=== PATIENT | female | born 1985 | race Caucasian/White ===

== ENCOUNTER 2018-05-02 10:32 | Emergency (ER) | payer OTHER ==
[2018-05-02] MEDS ORDERED: Diphtheria,Pertussis(Acell),Tetanus Vaccine 0.5 ML Syringe IM ONE (10:44)
[2018-05-02] MEDS ORDERED: Octyl 2-Cyanoacrylate 1 Tube TOP ONE (10:44)
--- NOTE | 2018-05-02 10:49 | EDM.PDOC ---
ED HPI GENERAL MEDICAL PROBLEM - General Chief Complaint: Laceration Stated Complaint: UNK Time Seen by Provider: 05/02/18 10:45 Source of Information: Reports: Patient History Limitations: Reports: No Limitations - History of Present Illness INITIAL COMMENTS - FREE TEXT/NARRATIVE: HISTORY AND PHYSICAL: History of present illness: Patient is a 32-year-old female who presents to the emergency room today with complaint of laceration across the bridge of her nose post seizure. She states this morning she was performing her normal routine when she "felt funny" and woke up on the ground. She has a known seizure disorder, having 2 previous - both were several years apart. Patient states she woke up on the ground and felt very fatigued and tired. Does have a 0.5 cm laceration across the bridge of her nose. She denies any pain or to her extremities, trunk, neck or back. Review of systems: As per history of present illness and below otherwise all systems reviewed and negative. Past medical history: As per history of present illness and as reviewed below otherwise noncontributory. Surgical history: As per history of present illness and as reviewed below otherwise noncontributory. Social history: No reported history of drug or alcohol abuse. Family history: As per history of present illness and as reviewed below otherwise noncontributory. Physical exam: General: Well-developed and well-nourished 32-year-old female. Alert and oriented. Nontoxic appearing and in no acute distress. HEENT: 0.5cm laceration to bridge of nose, nontender to palpation, normocephalic , pupils equal and reactive bilaterally, negative for conjunctival pallor or scleral icterus, mucous membranes moist, throat clear, neck supple, nontender, trachea midline. No drooling or trismus noted. No meningeal signs Lungs: Clear to auscultation, breath sounds equal bilaterally, chest nontender. Heart: S1S2, regular rate and rhythm without overt murmur Abdomen: Soft, nondistended, nontender. Negative for masses or hepatosplenomegaly. Negative for costovertebral tenderness. Pelvis: Stable nontender. Genitourinary: Deferred. Rectal: Deferred. Skin: 0.5cm laceation to bridge of nose. Otherwise skin is intact, warm, dry. No lesions or rashes noted. Extremities: Moves all extremities per self without difficulty or deficits, negative for cords or calf pain. Neurovascular unremarkable. C-spine/Back: No pinpoint vertebral tenderness upon palpation. No crepitus, step -offs or obvious deformities. She is ambulatory into the emergency room with even and steady gait. Able to walk on her heels and toes without difficulty. She had no urinary or fecal incontinence. Denies any numbness or tingling to her distal extremities. Neuro: Awake, alert, oriented. Cranial nerves II through XII unremarkable. Cerebellum unremarkable. Motor and sensory unremarkable throughout. Exam nonfocal. Notes: Doing a head CT at this time. She would like one completed as she is currently going through IVF for fertility. She states "I will make sure to have a brain tumor". We will performing the CT, declines any lab work at this time. Negative head CT. Wound care completed. Dermabond glue was used to close the laceration to the bridge of the nose. Patient tolerated well. Supportive care measures reviewed and discussed. She voices understanding and is agreeable to plan of care. Denies any further questions or concerns at this time. Diagnostics: CT Head Therapeutics: Tdap, Dermabond, Wound Care Prescription: None Impression: Head Injury Laceration Plan: 1. Take the remainder of the to rest (limit screen time, strenuous activities, etc...) 2. Tylenol and/or ibuprofen as needed for pain management. 3. Please do not remove the glue adhesive, this will fall off on its own. Continue to monitor for signs of infection. Once the glue has fallen off please apply sunscreen when out in sun exposure to minimize scarring 4. Please review the head injury instructions that we have discussed and that her printed in your discharge packet. 5. Follow-up with your primary caregiver in the next 1-2 days. Return to the ED as needed and as discussed. Definitive disposition and diagnosis as appropriate pending reevaluation and review of above. Onset: Today - Related Data Allergies Allergy/AdvReac Type Severity Reaction Status Date / Time No Known Allergies Allergy Verified 05/02/18 11:00 Home Meds: Home Meds Control 1 tab PO ASDIRECTED 05/02/18 [History] Folic Acid 1 mg PO DAILY 05/02/18 [History] Vit #108/Iron/FA [ One Tablet] 1 tab PO DAILY 05/02/18 [History ] lamoTRIgine [Lamictal] 150 mg PO BID 05/02/18 [History] metFORMIN [Glucophage] 1,000 mg PO DAILY 05/02/18 [History] ED ROS GENERAL - Review of Systems Review Of Systems: ROS reveals no pertinent complaints other than HPI. ED EXAM, SKIN/RASH Exam: See Below (See dictation) Course - Vital Signs Last Recorded V/S: Last Vital Signs Temp 97.8 F 05/02/18 10:57 Pulse 82 05/02/18 10:57 Resp 16 05/02/18 10:57 BP 124/78 05/02/18 10:57 Pulse Ox 100 05/02/18 10:57 - Orders/Labs/Meds Orders: Active Orders 24 hr Category Date Time Status Vaccines to be Administered [RC] PER UNIT ROUTINE Care 05/02/18 10:44 Active Head wo Cont [CT] Stat Exams 05/02/18 10:44 Taken Meds: Medications Discontinued Medications Generic Name Dose Route Start Last Admin Trade Name Freq PRN Reason Stop Dose Admin Diphtheria/Tetanus/Acell Pertussis 0.5 ml 05/02/18 10:44 05/02/18 11:29 Adacel IM 05/02/18 10:45 0.5 ml .ONCE ONE Administration Octyl Cyanoacrylate 1 applic 05/02/18 10:44 05/02/18 11:37 Dermabond Advance TOP 05/02/18 10:45 1 applic ONETIME ONE Administration Departure - Departure Time of Disposition: 11:46 Disposition: Home, Self-Care 01 Clinical Impression: Laceration Head injury Qualifiers: Encounter type: initial encounter Qualified Code(s): S09.90XA - Unspecified injury of head, initial encounter - Discharge Information Instructions: Head Injury, Adult, [id number], Laceration Care, Adult, Easy-to -Read Referrals: PCP,None [Primary Care Provider] - Forms: ED Department Discharge Additional Instructions: The following information is given to patients seen in the emergency department who are being discharged to home. This information is to outline your options for follow-up care. We provide all patients seen in our emergency department with a follow-up referral. The need for follow-up, as well as the timing and circumstances, are variable depending upon the specifics of your emergency department visit. If you don't have a primary care physician on staff, we will provide you with a referral. We always advise you to contact your personal physician following an emergency department visit to inform them of the circumstance of the visit and for follow-up with them and/or the need for any referrals to a consulting specialist. The emergency department will also refer you to a specialist when appropriate. This referral assures that you have the opportunity for follow-up care with a specialist. All of these measure are taken in an effort to provide you with optimal care, which includes your follow-up. Under all circumstances we always encourage you to contact your private physician who remains a resource for coordinating your care. When calling for follow-up care, please make the office aware that this follow-up is from your recent emergency room visit. If for any reason you are refused follow-up, please contact the [facility] Emergency Department at and asked to speak to the emergency department charge nurse. [facility] [address] [place] [id number] 1. Take the remainder of the to rest (limit screen time, strenuous activities, etc...) 2. Tylenol and/or ibuprofen as needed for pain management. 3. Please do not remove the glue adhesive, this will fall off on its own. Continue to monitor for signs of infection. Once the glue has fallen off please apply sunscreen when out in sun exposure to minimize scarring 4. Please review the head injury instructions that we have discussed and that her printed in your discharge packet. 5. Follow-up with your primary caregiver in the next 1-2 days. Return to the ED as needed and as discussed. - My Orders Last 24 Hours: My Active Orders 05/02/18 10:44 Vaccines to be Administered [RC] PER UNIT ROUTINE Head wo Cont [CT] Stat - Assessment/Plan Last 24 Hours: My Active Orders 05/02/18 10:44 Vaccines to be Administered [RC] PER UNIT ROUTINE Head wo Cont [CT] Stat
--- NOTE | 2018-05-02 17:42 | CT ---
EXAM DATE: 05/02/18 PATIENT'S AGE: 32 Patient: REJI PINEDA Facility: [place], [place] Site . Site : 1985 Study: CT Head WO CONT [id number]/20/2018 11:19:30 AM Ordering Physician: Doctor Guzman Final Report: INDICATION: 32-year-old female. Syncope versus seizure. TECHNIQUE: Contiguous CT images are obtained from foramen magnum to vertex without contrast axial sagittal and coronal reformatted images are reviewed. FINDINGS: The lateral 3rd and 4th ventricles normal in size and shape. The head is tilted slightly to the right accounting for the [id number] asymmetry. No evidence of acute intracranial hemorrhage or mass effect. No evidence of focal edema. No areas of abnormal brain density. The bony calvarium is unremarkable. Some localized on soft-tissue swelling over the bridge of the nose. IMPRESSION: Normal CT brain. No evidence of acute intracranial hemorrhage or skull fracture. Please note that all CT scans at this facility use dose modulation, iterative reconstruction, and/or weight-based dosing when appropriate to reduce radiation dose to as low as reasonably achievable. Dictated by Minor Sherman MD @ May 02 2018 11:41AM (Electronic Signature) Report Signed by Proxy. ALLYSON
== END 2018-05-02 12:05 | disposition home or self-care (01) ==
LOC: MW.ED 10:32
DX: S09.90XA Unspecified injury of head, initial encounter (principal); S01.21XA Laceration without foreign body of nose, initial encounter; X58.XXXA Exposure to other specified factors, initial encounter
CPT/HCPCS: 70450; 90471; 90715; 99284; A9270

== ENCOUNTER 2018-06-04 11:42 | Emergency (ER) | payer SELFPAY ==
--- NOTE | 2018-06-04 11:50 | EDM.PDOC ---
ED HPI GENERAL MEDICAL PROBLEM - General Chief Complaint: Neuro Symptoms/Deficits Stated Complaint: SEIZURE Time Seen by Provider: 06/04/18 11:50 Source of Information: Reports: Patient History Limitations: Reports: No Limitations - History of Present Illness INITIAL COMMENTS - FREE TEXT/NARRATIVE: HISTORY AND PHYSICAL: History of present illness: 32-year-old female presenting to the emergency room after unwitnessed seizure activity with past medical history of seizure disorder. Patient states that around 7 AM this morning she was sitting in her bed when she felt a "seizure coming on". She then next remembers looking at the clock and it was around 7:30. She denies any muscle pain or other injuries. States that she did have a seizure approximately one month ago as well in which she fell from standing position causing a laceration. She does have a history of seizure disorder but has been on Keppra 150 mg twice a day for some time with no problems. However, recently she has started in vitro fertilization therapy and is currently taking metformin, estradiol patches 0.1 mg 2 daily as well as estradiol pills 16 mg by mouth daily. States that they did have a transfer fertilized egg last week. She does see Dr. Althea Bateman in [place] as her fertility doctor. She does have an appointment to see Dr. Kerr on July 22 as her former neurologist was Dr. Mcclelland and she has not seen him for some time. Patient does state that she did have a CT of her head one month ago that was unremarkable. Otherwise she has been feeling her normal usual self. Of note, we did call Dr. Bateman, her in vitro fertilization physician who did verify that her current therapy could be lowering her seizure threshold and that she did agree with my increasing her Keppra dosage for now. In addition we did place her on to be seen as soon as possible by Dr. Kerr , neurologist. She does have an appointment July 22 but something sooner would be much appreciated secondary to her current in Vitro fertilization therapy and new seizure activity. CBC, CMP, mag, UA were all unremarkable. Review of systems: As per history of present illness and below otherwise all systems reviewed and negative. Past medical history: As per history of present illness and as reviewed below otherwise noncontributory. Surgical history: As per history of present illness and as reviewed below otherwise noncontributory. Social history: No reported history of drug or alcohol abuse. Family history: As per history of present illness and as reviewed below otherwise noncontributory. Physical exam: HEENT: Atraumatic, normocephalic, pupils reactive, negative for conjunctival pallor or scleral icterus, mucous membranes moist, throat clear, neck supple, nontender, trachea midline. Lungs: Clear to auscultation, breath sounds equal bilaterally, chest nontender. Heart: S1S2, regular, negative for clicks, rubs, or JVD. Abdomen: Soft, nondistended, nontender. Negative for masses or hepatosplenomegaly. Negative for costovertebral tenderness. Pelvis: Stable nontender. Genitourinary: Deferred. Rectal: Deferred. Extremities: Atraumatic, negative for cords or calf pain. Neurovascular unremarkable. Neuro: Awake, alert, oriented. Cranial nerves II through XII unremarkable. Cerebellum unremarkable. Motor and sensory unremarkable throughout. Exam nonfocal. Diagnostics: CBC, CMP, mag, UA, urine tox Therapeutics: [] Impression: Tonic-clonic seizure disorder New seizure activity secondary to medication interaction Plan: Please see above H&P. I did initially suspect that her new medications for IVF treatment has been affecting her current Keppra levels. We did talk to her IVF physician who agreed and I did go ahead and write a prescription for 500 mg of Keppra by mouth twice a day for 30 days. She currently on a very low dose at 150 mg by mouth twice a day. In addition she is to follow-up with her IVF physician as well as follow-up with Dr. Kerr. We will try to get her sooner appointment than her scheduled July 22. She was instructed to return to emergency department if she had any new or worsening symptoms. Definitive disposition and diagnosis as appropriate pending reevaluation and review of above. - Related Data Allergies Allergy/AdvReac Type Severity Reaction Status Date / Time No Known Allergies Allergy Verified 06/04/18 11:55 Home Meds: Home Meds Folic Acid 1 mg PO DAILY 05/02/18 [History] Vit #108/Iron/FA [ One Tablet] 1 tab PO DAILY 05/02/18 [History ] lamoTRIgine [Lamictal] 150 mg PO BID 05/02/18 [History] metFORMIN [Glucophage] 500 mg PO BID 05/02/18 [History] Estradiol [Climara] 2 each TD DAILY 06/04/18 [History] Estradiol [Estrace] 4 mg PO BID 06/04/18 [History] proGESTerone [Progesterone In Oil] 50 mg IM DAILY 06/04/18 [History] Past Medical History - Infectious Disease History Infectious Disease History: Reports: Chicken Pox - Past Surgical History Female Surgical History: Reports: Other (See Below) Other Female Surgeries/Procedures: currently trying to get through IVF Social & Family History - Family History Family Medical History: Noncontributory - Caffeine Use Caffeine Use: Reports: Coffee ED ROS GENERAL - Review of Systems Review Of Systems: ROS reveals no pertinent complaints other than HPI. ED EXAM, GENERAL - Physical Exam Exam: See Below Course - Vital Signs Last Recorded V/S: Last Vital Signs Temp 98.3 F 06/04/18 12:08 Pulse 86 06/04/18 12:08 Resp 18 06/04/18 12:08 BP 122/64 06/04/18 12:08 Pulse Ox 98 06/04/18 12:08 - Orders/Labs/Meds Orders: Active Orders 24 hr Category Date Time Status CULTURE URINE [RM] Stat Lab 06/04/18 13:00 Received Labs: Laboratory Tests 06/04/18 06/04/18 06/04/18 Range/Units 12:47 12:47 13:00 WBC 6.71 (4.0-11.0) K/uL RBC 4.34 (4.30-5.90) M/uL Hgb 13.4 (12.0-16.0) g/dL Hct 39.0 (36.0-46.0) % MCV 89.9 (80.0-98.0) fL MCH 30.9 (27.0-32.0) pg MCHC 34.4 (31.0-37.0) g/dL RDW Std Deviation 40.7 (28.0-62.0) fl RDW Coeff of Tosha 12 (11.0-15.0) % Plt Count 286 (150-400) K/uL MPV 10.50 (7.40-12.00) fL Neut % (Auto) 85.5 H (48.0-80.0) % Lymph % (Auto) 11.0 L (16.0-40.0) % Cannon % (Auto) 3.3 (0.0-15.0) % Eos % (Auto) 0.1 (0.0-7.0) % Baso % (Auto) 0.1 (0.0-1.5) % Neut # (Auto) 5.7 (1.4-5.7) K/uL Lymph # (Auto) 0.7 (0.6-2.4) K/uL Cannon # (Auto) 0.2 (0.0-0.8) K/uL Eos # (Auto) 0.0 (0.0-0.7) K/uL Baso # (Auto) 0.0 (0.0-0.1) K/uL Nucleated RBC % 0.0 /100WBC Nucleated RBCs # 0 K/uL Sodium 138 (136-145) mmol/L Potassium 4.5 (3.5-5.1) mmol/L Chloride 105 (98-107) mmol/L Carbon Dioxide 25.2 (21.0-32.0) mmol/L BUN 10 (7.0-18.0) mg/dL Creatinine 0.9 (0.6-1.0) mg/dL Est Cr Clr Drug Dosing TNP Estimated GFR (MDRD) > 60.0 ml/min Glucose 91 (74-106) mg/dL Calcium 9.7 (8.5-10.1) mg/dL Magnesium 1.8 (1.8-2.4) mg/dL Total Bilirubin 0.3 (0.2-1.0) mg/dL AST 17 (15-37) IU/L ALT 20 (14-63) IU/L Alkaline Phosphatase 49 (46-116) U/L Total Protein 7.2 (6.4-8.2) g/dL Albumin 3.9 (3.4-5.0) g/dL Globulin 3.3 (2.0-3.5) g/dL Albumin/Globulin Ratio 1.2 L (1.3-2.8) Urine Color YELLOW Urine Appearance CLEAR Urine pH 6.0 (5.0-8.0) Ur Specific Catlin 1.020 (1.001-1.035) Urine Protein NEGATIVE (NEGATIVE) mg/dL Urine Glucose (UA) NEGATIVE (NEGATIVE) mg/dL Urine Ketones NEGATIVE (NEGATIVE) mg/dL Urine Occult Blood NEGATIVE (NEGATIVE) Urine Nitrite NEGATIVE (NEGATIVE) Urine Bilirubin NEGATIVE (NEGATIVE) Urine Urobilinogen 0.2 (<2.0) EU/dL Ur Leukocyte Esterase NEGATIVE (NEGATIVE) Urine RBC 0-1 (0-2/HPF) Urine WBC 0-1 (0-5/HPF) Ur Epithelial Cells OCCASIONAL (NONE-FEW) Urine Bacteria RARE (NEGATIVE) Urine Opiates Screen (NEGATIVE) Ur Oxycodone Screen (NEGATIVE) Urine Methadone Screen (NEGATIVE) Ur Barbiturates Screen (NEGATIVE) Ur Phencyclidine Scrn (NEGATIVE) Ur Amphetamine Screen (NEGATIVE) U Methamphetamines Scrn (NEGATIVE) U Benzodiazepines Scrn (NEGATIVE) U Cocaine Metab Screen (NEGATIVE) U Marijuana (THC) Screen (NEGATIVE) 06/04/18 Range/Units 13:00 WBC (4.0-11.0) K/uL RBC (4.30-5.90) M/uL Hgb (12.0-16.0) g/dL Hct (36.0-46.0) % MCV (80.0-98.0) fL MCH (27.0-32.0) pg MCHC (31.0-37.0) g/dL RDW Std Deviation (28.0-62.0) fl RDW Coeff of Tosha (11.0-15.0) % Plt Count (150-400) K/uL MPV (7.40-12.00) fL Neut % (Auto) (48.0-80.0) % Lymph % (Auto) (16.0-40.0) % Cannon % (Auto) (0.0-15.0) % Eos % (Auto) (0.0-7.0) % Baso % (Auto) (0.0-1.5) % Neut # (Auto) (1.4-5.7) K/uL Lymph # (Auto) (0.6-2.4) K/uL Cannon # (Auto) (0.0-0.8) K/uL Eos # (Auto) (0.0-0.7) K/uL Baso # (Auto) (0.0-0.1) K/uL Nucleated RBC % /100WBC Nucleated RBCs # K/uL Sodium (136-145) mmol/L Potassium (3.5-5.1) mmol/L Chloride (98-107) mmol/L Carbon Dioxide (21.0-32.0) mmol/L BUN (7.0-18.0) mg/dL Creatinine (0.6-1.0) mg/dL Est Cr Clr Drug Dosing Estimated GFR (MDRD) ml/min Glucose (74-106) mg/dL Calcium (8.5-10.1) mg/dL Magnesium (1.8-2.4) mg/dL Total Bilirubin (0.2-1.0) mg/dL AST (15-37) IU/L ALT (14-63) IU/L Alkaline Phosphatase (46-116) U/L Total Protein (6.4-8.2) g/dL Albumin (3.4-5.0) g/dL Globulin (2.0-3.5) g/dL Albumin/Globulin Ratio (1.3-2.8) Urine Color Urine Appearance Urine pH (5.0-8.0) Ur Specific Catlin (1.001-1.035) Urine Protein (NEGATIVE) mg/dL Urine Glucose (UA) (NEGATIVE) mg/dL Urine Ketones (NEGATIVE) mg/dL Urine Occult Blood (NEGATIVE) Urine Nitrite (NEGATIVE) Urine Bilirubin (NEGATIVE) Urine Urobilinogen (<2.0) EU/dL Ur Leukocyte Esterase (NEGATIVE) Urine RBC (0-2/HPF) Urine WBC (0-5/HPF) Ur Epithelial Cells (NONE-FEW) Urine Bacteria (NEGATIVE) Urine Opiates Screen NEGATIVE (NEGATIVE) Ur Oxycodone Screen NEGATIVE (NEGATIVE) Urine Methadone Screen NEGATIVE (NEGATIVE) Ur Barbiturates Screen NEGATIVE (NEGATIVE) Ur Phencyclidine Scrn NEGATIVE (NEGATIVE) Ur Amphetamine Screen NEGATIVE (NEGATIVE) U Methamphetamines Scrn NEGATIVE (NEGATIVE) U Benzodiazepines Scrn POSITIVE (NEGATIVE) U Cocaine Metab Screen NEGATIVE (NEGATIVE) U Marijuana (THC) Screen NEGATIVE (NEGATIVE) Departure - Departure Time of Disposition: 13:57 Disposition: Home, Self-Care 01 Condition: Good Clinical Impression: Seizure, Tonic-clonic seizure disorder, Drug interaction - Discharge Information Referrals: PCP,None [Primary Care Provider] - Forms: ED Department Discharge Additional Instructions: My general discharge The following information is given to patients seen in the emergency department who are being discharged to home. This information is to outline your options for follow-up care. We provide all patients seen in our emergency department with a follow-up referral. The need for follow-up, as well as the timing and circumstances, are variable depending upon the specifics of your emergency department visit. If you don't have a primary care physician on staff, we will provide you with a referral. We always advise you to contact your personal physician following an emergency department visit to inform them of the circumstance of the visit and for follow-up with them and/or the need for any referrals to a consulting specialist. The emergency department will also refer you to a specialist when appropriate. This referral assures that you have the opportunity for follow-up care with a specialist. All of these measure are taken in an effort to provide you with optimal care, which includes your follow-up. Under all circumstances we always encourage you to contact your private physician who remains a resource for coordinating your care. When calling for follow-up care, please make the office aware that this follow-up is from your recent emergency room visit. If for any reason you are refused follow-up, please contact the [facility] Emergency Department at and asked to speak to the emergency department charge nurse. [facility] - Neurology Professional Building [address] [place] [address], [address] [place] [address] [facility] [address] [place] [id number] As we discussed please follow-up with your IVF physician as well as Dr. Kerr, neurology. Be sure to call them on Wednesday and tell them they were seen in the emergency department and they wish for you to be seen as soon as possible. We did notify their office. Take medication as prescribed and as we discussed. Return to emergency department if any new or worsening symptoms. - My Orders Last 24 Hours: My Active Orders 06/04/18 13:00 CULTURE URINE [RM] Stat - Assessment/Plan Last 24 Hours: My Active Orders 06/04/18 13:00 CULTURE URINE [RM] Stat
[2018-06-04 13:20] LABS: CHLORIDE,CL 105 mmol/L (98-107); SODIUM,NA 138 mmol/L (136-145)
== END 2018-06-04 14:25 | disposition home or self-care (01) ==
LOC: MW.ED 11:42
DX: G40.409 Other generalized epilepsy and epileptic syndromes, not intractable, without status epilepticus (principal); T38.5X5A Adverse effect of other estrogens and progestogens, initial encounter; T38.3X5A Adverse effect of insulin and oral hypoglycemic [antidiabetic] drugs, initial encounter; Z79.899 Other long term (current) drug therapy
CPT/HCPCS: 36415; 80053; 80305-QW; 81001; 83735; 85025; 87086; 99283; 99284

== ENCOUNTER 2019-02-06 00:23 | Inpatient (IN) | payer BC ==
[2019-02-06] MEDS ORDERED: Terbutaline 1 MG/ML SDV SUBCUT PRN (00:28)
[2019-02-06] MEDS ORDERED: Carboprost Tromethamine 250 MCG/1 ML Amp IM PRN (00:30)
[2019-02-06] MEDS ORDERED: Water For Irrigation,Sterile 1,000 ML Container IRR PRN (00:30)
[2019-02-06] MEDS ORDERED: Sodium Chloride 0.9% 2.5 ML Syringe FLUSH PRN (00:30)
[2019-02-06] MEDS ORDERED: Nalbuphine 10 MG/1 ML Vial IVPUSH PRN (00:30)
[2019-02-06] MEDS ORDERED: Ampicillin 2 GM in Sodium Chloride 0.9% 100 ML IV ONE (00:30)
[2019-02-06] MEDS ORDERED: Butorphanol 1 MG/ML SDV IVPUSH PRN (00:30)
[2019-02-06] MEDS ORDERED: Sodium Chloride 0.9% 10 ML SDV IV PRN (00:30)
[2019-02-06] MEDS ORDERED: Sodium Chloride 0.9% 10 ML Syringe FLUSH PRN (00:30)
[2019-02-06] MEDS ORDERED: Oxytocin/0.9 % Sodium Chloride 30 UNIT/500 ML BAG IV SCH ×2 (00:30)
[2019-02-06] MEDS ORDERED: Lidocaine 1% 50 ML MDV INJECT PRN (00:30)
[2019-02-06] MEDS ORDERED: Methylergonovine 0.2 MG/1 ML Amp IM PRN (00:30)
[2019-02-06] MEDS ORDERED: Misoprostol 200 MCG Tab PO PRN (00:30)
[2019-02-06] MEDS ORDERED: Tranexamic Acid 1,000 MG in Sodium Chloride 0.9% 100 ML IV PRN (00:30)
[2019-02-06] MEDS ORDERED: Ampicillin 1 GM in Sodium Chloride 0.9% 50 ML IV SCH (00:30)
[2019-02-06] MEDS: Lactated Ringers 1,000 ML IV SCH ×3 (01:19→23:57)
[2019-02-06] MEDS: Misoprostol 25 MCG (1/4 of 100 MCG) Tab VAG PRN ×5 (01:32→18:35)
[2019-02-06] MEDS: Ampicillin 1 GM in Sodium Chloride 0.9% 50 ML IV SCH ×5 (05:25→21:20)
--- NOTE | 2019-02-06 09:39 | PCM.LDHP ---
L&D History of Present Illness - General Date of Service: 02/06/19 Admit Problem/Dx: Patient Status Order with Admit Dx/Problem 02/06/19 00:30 Patient Status [ADT] Routine Admission Diagnosis/Problem Admission Diagnosis/Problem Source of Information: Patient History Limitations: Reports: No Limitations - History of Present Illness Improves with: Reports: None Worsens with: Reports: None Associated Symptoms: Reports: N - Related Data Allergies/Adverse Reactions: Allergies Allergy/AdvReac Type Severity Reaction Status Date / Time No Known Allergies Allergy Verified 06/04/18 11:55 Home Medications: Home Meds Folic Acid 1 mg PO DAILY 05/02/18 [History] Mv-Mn/Iron/FA/Herbal/Digestive [ One Tablet] 1 tab PO DAILY 05/02/18 [ History] lamoTRIgine [Lamictal] 150 mg PO BID 05/02/18 [History] Past Medical History - Past Health History Medical/Surgical History: Denies Medical/Surgical History HEENT History: Reports: None Cardiovascular History: Reports: None Respiratory History: Reports: None Gastrointestinal History: Reports: None Genitourinary History: Reports: None 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: Other (See Below) Other OB/BYN History: 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 Musculoskeletal History: Reports: None Neurological History: Reports: Seizure Psychiatric History: Reports: None Hematologic History: Reports: None Immunologic History: Reports: None Oncologic (Cancer) History: Reports: None Dermatologic History: Reports: None - Infectious Disease History Infectious Disease History: Reports: Chicken Pox - Past Surgical History Head Surgeries/Procedures: Reports: None Female Surgical History: Reports: Other (See Below) Other Female Surgeries/Procedures: currently trying to get through IVF Social & Family History - Family History Family Medical History: Noncontributory - Tobacco Use Smoking Status *Q: Never Smoker Second Hand Smoke Exposure: No - Caffeine Use Caffeine Use: Reports: Coffee - Recreational Drug Use Recreational Drug Use: No H&P Review of Systems - Review of Systems: Review Of Systems: See Below General: Reports: No Symptoms HEENT: Reports: No Symptoms Pulmonary: Reports: No Symptoms Cardiovascular: Reports: No Symptoms Gastrointestinal: Reports: No Symptoms Genitourinary: Reports: No Symptoms Musculoskeletal: Reports: No Symptoms Skin: Reports: No Symptoms Psychiatric: Reports: No Symptoms Neurological: Reports: No Symptoms Hematologic/Lymphatic: Reports: No Symptoms Immunologic: Reports: No Symptoms L&D Exam - Exam Exam: See Below - Vital Signs Weight: 71.668 kg - OB Specific Contraction Intensity: Mild to Moderate Movement: Active Heart Tones: Present Presentation: Vertex - Farrar Score Farrar Score Cervix Position: Midposition Farrar Score Consistency: Soft Farrar Score Effacement: >80% Farrar Score Dilation: 1-2 cm Farrar Score Infant's Station: -2 Farrar Score Total: 8 - Exam General: Alert, Oriented HEENT: PERRLA, Conjunctiva Clear, EACs Clear, EOMI, Hearing Intact, Mucosa Moist & [place], Nares Patent, Normal Nasal Septum, Posterior Pharynx Clear, TMs Clear Neck: Supple, Trachea Midline Lungs: Clear to Auscultation, Normal Respiratory Effort Cardiovascular: Regular Rate, Regular Rhythm GI/Abdominal Exam: Normal Bowel Sounds, Soft, Non-Tender, No Organomegaly, No Distention, No Abnormal Bruit, No Mass, Pelvis Stable Rectal Exam: Normal Exam, Normal Rectal Tone Genitourinary: Normal external exam, Normal bimanual exam, Normal speculum exam Back Exam: Normal Inspection, Full Range of Motion Extremities: Normal Inspection, Normal Range of Motion, Non-Tender, No Pedal Edema, Normal Capillary Refill Skin: Warm, Dry, Intact Neurological: Cranial Nerves Intact, Reflexes Equal Bilateral Psychiatric: Alert, Normal Affect, Normal Mood - Patient Data Lab Results Last 24 hrs: Laboratory Results - last 24 hr 02/06/19 02/06/19 Range/Units 00:50 00:50 WBC 8.98 (4.0-11.0) K/uL RBC 3.17 L (4.30-5.90) M/uL Hgb 10.7 L (12.0-16.0) g/dL Hct 31.6 L (36.0-46.0) % MCV 99.7 H (80.0-98.0) fL MCH 33.8 H (27.0-32.0) pg MCHC 33.9 (31.0-37.0) g/dL RDW Std Deviation 46.5 (28.0-62.0) fl RDW Coeff of Tosha 13 (11.0-15.0) % Plt Count 211 (150-400) K/uL MPV 11.90 (7.40-12.00) fL Blood Type AB POSITIVE Antibody Screen NEGATIVE Result Diagrams: 02/06/19 00:50 Problem List Initiated/Reviewed/Updated: Yes Orders Last 24hrs: Active Orders 24 hr Category Date Time Status Patient Status [ADT] Routine ADT 02/06/19 00:30 Active Bedrest Bathroom Privileges [RC] ASDIRECTED Care 02/06/19 00:29 Active Communication Order [RC] ASDIRECTED Care 02/06/19 00:29 Active Communication Order [RC] ASDIRECTED Care 02/06/19 00:29 Active Communication Order [RC] ASDIRECTED Care 02/06/19 00:29 Active Heart Tones [RC] CONTINUOUS Care 02/06/19 00:30 Active Non Stress Test [RC] PER UNIT ROUTINE Care 02/06/19 00:30 Active May Shower [RC] ASDIRECTED Care 02/06/19 00:30 Active Notify Provider [RC] PRN Care 02/06/19 00:29 Active Notify Provider [RC] PRN Care 02/06/19 00:29 Active Notify Provider [RC] PRN Care 02/06/19 00:30 Active Notify Provider [RC] STAT Care 02/06/19 00:29 Active Oxygen Therapy [RC] ASDIRECTED Care 02/06/19 00:29 Active Up ad Jane [RC] ASDIRECTED Care 02/06/19 00:30 Active Vaginal Exam [RC] PRN Care 02/06/19 00:29 Active Vaginal Exam [RC] PRN Care 02/06/19 00:30 Active Vital Signs [RC] PER UNIT ROUTINE Care 02/06/19 00:29 Active Vital Signs [RC] PER UNIT ROUTINE Care 02/06/19 00:30 Active Regular Diet [DIET] Diet 02/06/19 Breakfast Active Ampicillin 1 gm Med 02/06/19 05:00 Active Sodium Chloride 0.9% [Normal Saline] 50 ml IV Q4H Butorphanol [Stadol] Med 02/06/19 00:30 Active 1 mg IVPUSH Q1H PRN Carboprost Tromethamine [Hemabate DS] Med 02/06/19 00:30 Active 250 mcg IM ASDIRECTED PRN Lactated Ringers [Ringers, Lactated] 1,000 ml Med 02/06/19 00:30 Active IV ASDIRECTED Lidocaine 1% [Xylocaine 1%] Med 02/06/19 00:30 Active 50 ml INJECT ONETIME PRN Methylergonovine [Methergine] Med 02/06/19 00:30 Active 0.2 mg IM ASDIRECTED PRN Nalbuphine [Nubain] Med 02/06/19 00:30 Active 10 mg IVPUSH Q1H PRN Ondansetron [Zofran] Med 02/06/19 00:30 Active 4 mg IV Q4H PRN Oxytocin/0.9 % Sodium Chloride [Oxytocin 30 Unit/500 ML Med 02/06/19 00:30 Active -NS] 30 unit in 500 ml IV TITRATE Oxytocin/0.9 % Sodium Chloride [Oxytocin 30 Unit/500 ML Med 02/06/19 00:30 Active -NS] 30 unit in 500 ml IV TITRATE Sodium Chloride 0.9% [Normal Saline] Med 02/06/19 00:30 Active 10 ml IV ASDIRECTED PRN Sodium Chloride 0.9% [Saline Flush] Med 02/06/19 00:30 Active 10 ml FLUSH ASDIRECTED PRN Sodium Chloride 0.9% [Saline Flush] Med 02/06/19 00:30 Active 2.5 ml FLUSH ASDIRECTED PRN Terbutaline [Brethine] Med 02/06/19 00:28 Active 0.25 mg SUBCUT ASDIRECTED PRN Tranexamic Acid [Cyklokapron] 1,000 mg Med 02/06/19 00:30 Active Sodium Chloride 0.9% [Normal Saline] 100 ml IV ONETIME Water For Irrigation,Sterile [Sterile Water for Med 02/06/19 00:30 Active Irrigation] 1,000 ml IRR ASDIRECTED PRN miSOPROStol [Cytotec] Med 02/06/19 00:30 Active 200 mcg PO ONETIME PRN miSOPROStol [Cytotec] Med 02/06/19 00:28 Active 25 mcg VAG ONETIME PRN miSOPROStol [Cytotec] Med 02/06/19 00:28 Active 25 mcg VAG Q4H PRN Scalp Electrode [WOMSER] Per Unit Routine Oth 02/06/19 00:30 Ordered Medication Administration Instruction [OM.PC] Q3H Oth 02/06/19 00:30 Ordered Peripheral IV Insertion Adult [OM.PC] Routine Oth 02/06/19 00:30 Ordered Resuscitation Status Routine Resus Stat 02/06/19 00:30 Ordered Medication Orders Butorphanol Tartrate (Stadol) 1 mg IVPUSH Q1H PRN PRN Reason: Pain Carboprost Tromethamine (Hemabate Ds) 250 mcg IM ASDIRECTED PRN PRN Reason: Post Hemorrhage Lactated Ringer's (Ringers, Lactated) 1,000 mls @ 150 mls/hr IV ASDIRECTED [facility] Last Admin: 02/06/19 01:19 Dose: 150 mls/hr Oxytocin/Sodium Chloride (Oxytocin 30 Unit/500 Ml-Ns) 30 unit in 500 mls @ 2 mls/hr IV TITRATE [facility]OS[facility]UA; Protocol Oxytocin/Sodium Chloride (Oxytocin 30 Unit/500 Ml-Ns) 30 unit in 500 mls @ 555 mls/hr IV TITRATE [facility] Tranexamic Acid 1,000 mg/ (Sodium Chloride) 110 mls @ 660 mls/hr IV ONETIME PRN PRN Reason: Bleeding Ampicillin Sodium 1 gm/ Sodium (Chloride) 50 mls @ 100 mls/hr IV Q4H [facility] Last Admin: 02/06/19 09:02 Dose: 100 mls/hr Infusion: 02/06/19 05:55 Dose: 100 mls/hr Admin: 02/06/19 05:25 Dose: 100 mls/hr Lidocaine HCl (Xylocaine 1%) 50 ml INJECT ONETIME PRN PRN Reason: Laceration repair Methylergonovine Maleate (Methergine) 0.2 mg IM ASDIRECTED PRN PRN Reason: Post Hemorrhage Misoprostol (Cytotec) 25 mcg VAG ONETIME PRN PRN Reason: Cervical Ripening Last Admin: 02/06/19 01:32 Dose: 25 mcg Misoprostol (Cytotec) 25 mcg VAG Q4H PRN PRN Reason: Cervical Ripening Last Admin: 02/06/19 09:18 Dose: 25 mcg Misoprostol (Cytotec) 200 mcg PO ONETIME PRN PRN Reason: Post Hemorrhage Nalbuphine HCl (Nubain) 10 mg IVPUSH Q1H PRN PRN Reason: Pain (severe 7-10) Ondansetron HCl (Zofran) 4 mg IV Q4H PRN PRN Reason: Nausea/Vomiting Sodium Chloride (Saline Flush) 10 ml FLUSH ASDIRECTED PRN PRN Reason: Keep Vein Open Sodium Chloride (Saline Flush) 2.5 ml FLUSH ASDIRECTED PRN PRN Reason: Keep Vein Open Sodium Chloride (Normal Saline) 10 ml IV ASDIRECTED PRN PRN Reason: IV Use Sterile Water (Sterile Water For Irrigation) 1,000 ml IRR ASDIRECTED PRN PRN Reason: delivery Terbutaline Sulfate (Brethine) 0.25 mg SUBCUT ASDIRECTED PRN PRN Reason: Tacysystole Assessment/Plan Comment:: Term admited for elective induction becous of sizer and on the advice of her Neurologist
[2019-02-06] MEDS ORDERED: Misoprostol 25 MCG (1/4 of 100 MCG) Tab PO ONE ×2 (13:45→18:19)
[2019-02-06] MEDS ORDERED: ePHEDrine 50 MG/ML SDV ONE (22:44)
[2019-02-06] MEDS ORDERED: Bupivacaine 0.25% 10 ML SDV ONE (22:45)
[2019-02-06] MEDS ORDERED: Lidocaine HCl/EPINEPHrine 5 ML IJ ONE (22:45)
[2019-02-06] MEDS ORDERED: Ropivacaine HCl/PF 100 ML ONE (22:45)
--- NOTE | 2019-02-06 23:23 | PCM.PREANE ---
Preanesthetic Assessment - Anesthesia/Transfusion/Family Hx Anesthesia History: Prior Anesthesia Without Reaction Family History of Anesthesia Reaction: No Transfusion History: No Prior Transfusion(s) Intubation History: Unknown - Review of Systems General: No Symptoms Pulmonary: No Symptoms Cardiovascular: No Symptoms Gastrointestinal: No Symptoms Neurological: No Symptoms Other: Reports: None - Physical Assessment NPO Status Date: 02/06/19 NPO Status Time: 22:00 Height: 1.63 m Weight: 71.668 kg ASA Class: 2 Mental Status: Alert & Oriented x3 Dentition: Reports: Normal Dentition ROM/Head Extension: Full Lungs: Clear to Auscultation Cardiovascular: Regular Rate - Lab Values: Laboratory Last Values WBC 8.98 K/uL (4.0-11.0) 02/06/19 00:50 RBC 3.17 M/uL (4.30-5.90) L 02/06/19 00:50 Hgb 10.7 g/dL (12.0-16.0) L 02/06/19 00:50 Hct 31.6 % (36.0-46.0) L 02/06/19 00:50 MCV 99.7 fL (80.0-98.0) H 02/06/19 00:50 MCH 33.8 pg (27.0-32.0) H 02/06/19 00:50 MCHC 33.9 g/dL (31.0-37.0) 02/06/19 00:50 RDW Std Deviation 46.5 fl (28.0-62.0) 02/06/19 00:50 RDW Coeff of Tosha 13 % (11.0-15.0) 02/06/19 00:50 Plt Count 211 K/uL (150-400) 02/06/19 00:50 MPV 11.90 fL (7.40-12.00) 02/06/19 00:50 Blood Type AB POSITIVE 02/06/19 00:50 Antibody Screen NEGATIVE 02/06/19 00:50 - Allergies Allergies/Adverse Reactions: Allergies Allergy/AdvReac Type Severity Reaction Status Date / Time No Known Allergies Allergy Verified 06/04/18 11:55 - Blood Blood Available: No Product(s) Available: None - Anesthesia Plan Free Text/Narrative:: labor epidural Pre-Op Medication Ordered: None - Acknowledgements Anesthesia Type Planned: Epidural Pt an Appropriate Candidate for the Planned Anesthesia: Yes Alternatives and Risks of Anesthesia Discussed w Pt/Guardian: Yes Pt/Guardian Understands and Agrees with Anesthesia Plan: Yes PreAnesthesia Questionnaire - Past Health History Medical/Surgical History: Denies Medical/Surgical History (wisdom teeth extraction) 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, Other (See Below) Other OB/BYN History: 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 Neurological History: Reports: Seizure Endocrine/Metabolic History: Reports: None - Infectious Disease History Infectious Disease History: Reports: None, Chicken Pox - Past Surgical History Head Surgeries/Procedures: Reports: None Other Head Surgeries/Procedures: wisdom teeth HEENT Surgical History: Reports: None Cardiovascular Surgical History: Reports: None Respiratory Surgical History: Reports: None GI Surgical History: Reports: None Female Surgical History: Reports: None, Other (See Below) Other Female Surgeries/Procedures: currently trying to get through IVF Male Surgical History: Reports: None Endocrine Surgical History: Reports: None Neurological Surgical History: Reports: None Musculoskeletal Surgical History: Reports: None Oncologic Surgical History: Reports: None Dermatological Surgical History: Reports: None - SUBSTANCE USE Smoking Status *Q: Never Smoker Second Hand Smoke Exposure: No Recreational Drug Use History: No - HOME MEDS Home Medications: Home Meds Folic Acid 1 mg PO DAILY 05/02/18 [History] Mv-Mn/Iron/FA/Herbal/Digestive [ One Tablet] 1 tab PO DAILY 05/02/18 [ History] lamoTRIgine [Lamictal] 150 mg PO BID 05/02/18 [History] - CURRENT (IN HOUSE) MEDS Current Meds: Current Medications Butorphanol Tartrate (Stadol) 1 mg IVPUSH Q1H PRN PRN Reason: Pain Last Admin: 02/06/19 21:27 Dose: 1 mg Carboprost Tromethamine (Hemabate Ds) 250 mcg IM ASDIRECTED PRN PRN Reason: Post Hemorrhage Lactated Ringer's (Ringers, Lactated) 1,000 mls @ 150 mls/hr IV ASDIRECTED [facility] Last Admin: 02/06/19 21:20 Dose: 999 mls/hr Oxytocin/Sodium Chloride (Oxytocin 30 Unit/500 Ml-Ns) 30 unit in 500 mls @ 2 mls/hr IV TITRATE JOSHUA; Protocol Oxytocin/Sodium Chloride (Oxytocin 30 Unit/500 Ml-Ns) 30 unit in 500 mls @ 555 mls/hr IV TITRATE [facility] Tranexamic Acid 1,000 mg/ (Sodium Chloride) 110 mls @ 660 mls/hr IV ONETIME PRN PRN Reason: Bleeding Ampicillin Sodium 1 gm/ Sodium (Chloride) 50 mls @ 100 mls/hr IV Q4H [facility] Last Admin: 02/06/19 21:20 Dose: 100 mls/hr Lidocaine HCl (Xylocaine 1%) 50 ml INJECT ONETIME PRN PRN Reason: Laceration repair Methylergonovine Maleate (Methergine) 0.2 mg IM ASDIRECTED PRN PRN Reason: Post Hemorrhage Misoprostol (Cytotec) 25 mcg VAG ONETIME PRN PRN Reason: Cervical Ripening Last Admin: 02/06/19 01:32 Dose: 25 mcg Misoprostol (Cytotec) 25 mcg VAG Q4H PRN PRN Reason: Cervical Ripening Last Admin: 02/06/19 18:35 Dose: 25 mcg Misoprostol (Cytotec) 200 mcg PO ONETIME PRN PRN Reason: Post Hemorrhage Nalbuphine HCl (Nubain) 10 mg IVPUSH Q1H PRN PRN Reason: Pain (severe 7-10) Ondansetron HCl (Zofran) 4 mg IV Q4H PRN PRN Reason: Nausea/Vomiting Sodium Chloride (Saline Flush) 10 ml FLUSH ASDIRECTED PRN PRN Reason: Keep Vein Open Sodium Chloride (Saline Flush) 2.5 ml FLUSH ASDIRECTED PRN PRN Reason: Keep Vein Open Sodium Chloride (Normal Saline) 10 ml IV ASDIRECTED PRN PRN Reason: IV Use Sterile Water (Sterile Water For Irrigation) 1,000 ml IRR ASDIRECTED PRN PRN Reason: delivery Terbutaline Sulfate (Brethine) 0.25 mg SUBCUT ASDIRECTED PRN PRN Reason: Tacysystole Discontinued Medications Bupivacaine HCl (Sensorcaine-Mpf 0.25%) Confirm Administered Dose 10 ml .ROUTE .STK-MED ONE Stop: 02/06/19 22:46 Ephedrine Sulfate (Ephedrine Sulfate) Confirm Administered Dose 50 mg .ROUTE .STK-MED ONE Stop: 02/06/19 22:45 Ampicillin Sodium 2 gm/ Sodium (Chloride) 100 mls @ 200 mls/hr IV ONETIME ONE Stop: 02/06/19 00:59 Last Admin: 02/06/19 01:19 Dose: 200 mls/hr Ampicillin Sodium 1 gm/ Sodium (Chloride) 50 mls @ 100 mls/hr IV Q4H [facility] Ropivacaine (Naropin 0.2%) Confirm Administered Dose 100 mls @ as directed .ROUTE .STK-MED ONE Stop: 02/06/19 22:46 Lidocaine/Epinephrine (Lidocaine 1.5%-Epi 1:200,000) Confirm Administered Dose 5 ml IJ .STK-MED ONE Stop: 02/06/19 22:46 Misoprostol (Cytotec) 25 mcg PO ONETIME ONE Stop: 02/06/19 13:46 Last Admin: 02/06/19 13:46 Dose: 25 mcg Misoprostol (Cytotec) 25 mcg PO ONETIME ONE Stop: 02/06/19 18:20 Last Admin: 02/06/19 18:35 Dose: 25 mcg
[2019-02-06] MEDS: Ondansetron 4 MG/2 ML SDV IV PRN (23:57)
[2019-02-07] MEDS: Ampicillin 1 GM in Sodium Chloride 0.9% 50 ML IV SCH ×3 (05:35→13:12)
[2019-02-07] MEDS: Lactated Ringers 1,000 ML IV SCH ×3 (05:36→18:49)
[2019-02-07] MEDS ORDERED: Ropivacaine HCl/PF 100 ML ONE (08:27)
[2019-02-07] MEDS: Ondansetron 4 MG/2 ML SDV IV PRN (09:16)
[2019-02-07] MEDS ORDERED: Lanolin 100% Cream 7 GM Tube TOP PRN (13:56)
[2019-02-07] MEDS ORDERED: Benzocaine/Menthol 20%-0.5% Spray 78 GM Cannister TOP PRN (13:56)
[2019-02-07] MEDS ORDERED: Bisacodyl 10 MG Supp RECTAL PRN (13:56)
[2019-02-07] MEDS ORDERED: Acetaminophen 500 MG Tab PO PRN (13:56)
[2019-02-07] MEDS ORDERED: Witch Hazel Medicated Pads 40/Jar TOP PRN (13:56)
[2019-02-07] MEDS ORDERED: Ibuprofen 800 MG Tab PO PRN (13:56)
[2019-02-07] MEDS ORDERED: oxyCODONE 5 MG Tab PO PRN (13:56)
[2019-02-07] MEDS ORDERED: Ibuprofen 400 MG Tab PO PRN (13:56)
--- NOTE | 2019-02-07 15:21 | OR ---
SURGEON: Matias Rowley MD DATE OF PROCEDURE: 02/07/2019 DELIVERY NOTE: Ms. Wood is 33-year-old patient. She is primigravida. She is followed in our clinic primarily by me. The only medical issue she had in her , she had petit mal seizure and she was on medication, and she was followed jointly by me and neurologist for this issue. The rest of her workup was essentially normal at 39 weeks. She is admitted for elective induction. We used Cytotec and Pitocin for the induction. The patient progressed slowly and her labor started slowly. Eventually, I was able to do artificial rupture of the membrane and eventually the patient with the aid of the Pitocin and Cytotec has progressed to complete-complete vertex and +2 station. She pushed for an excess of 2 hours unable to accomplish the and after counseling the patient, I recommended for her vacuum extraction, she agreed to that. We used Kiwi vacuum extraction. The vaginal delivery accomplished and the fetus required resuscitation when it was delivered. The score is not immediately available at this time. The placenta delivered spontaneous, complete, and intact. There was 1 nuchal cord noticed at the time of the delivery and there was no perineal, vaginal, or labial laceration. Estimated blood loss is 350 to 400 mL. heart rate was category I. BRIA / KIKI /[id number]
[2019-02-07] MEDS: Acetaminophen 500 MG Tab PO PRN (16:52)
[2019-02-07] MEDS ORDERED: Morphine 10 MG/ML Syringe IVPUSH ONE (19:00)
[2019-02-07] MEDS ORDERED: Midazolam 1 MG/ML 2 ML SDV ONE (19:30)
[2019-02-07] MEDS ORDERED: Lidocaine 2% 5 ML SDV ONE (19:30)
[2019-02-07] MEDS ORDERED: Propofol 200 MG/20 ML SDV ONE (19:30)
[2019-02-07] MEDS ORDERED: Rocuronium 100 MG/10 ML Syringe ONE (19:30)
[2019-02-07] MEDS ORDERED: fentaNYL 250 MCG/5 ML SDV ONE (19:30)
[2019-02-07] MEDS ORDERED: Ondansetron 4 MG/2 ML SDV ONE (19:30)
[2019-02-07] MEDS ORDERED: Methylergonovine 0.2 MG/1 ML Amp ONE (20:16)
[2019-02-07] MEDS ORDERED: Furosemide 40 MG/4 ML VIAL ONE (20:24)
[2019-02-07] MEDS ORDERED: Glycopyrrolate 0.2 MG/ML SDV ONE (20:30)
--- NOTE | 2019-02-07 20:30 | PCM.OPNOTE ---
- General Post-Op/Procedure Note Date of Surgery/Procedure: 02/07/19 Operative Procedure(s): EUA Evacuation of utrin blood clots. Pre Op Diagnosis: SP vaginal delivery post hemorragh. Post-Op Diagnosis: Same Anesthesia Technique: General ET Tube Primary Surgeon: Matias Rowley EBL in mLs: 1,500 Complications: None Condition: Good Free Text/Narrative:: Intake & Output 02/07/19 02/07/19 02/07/19 06:59 14:59 22:59 Output Total 450 Balance -450
--- NOTE | 2019-02-07 21:18 | PCM.POSTAN ---
POST ANESTHESIA ASSESSMENT - MENTAL STATUS Mental Status: Alert, Oriented - VITAL SIGNS Pulse Rate: 80 SaO2: 98 Resp Rate: 14 Blood Pressure: 131/81 - RESPIRATORY Respiratory Status: Respiratory Rate WNL, Airway Patent, O2 Saturation Stable - CARDIOVASCULAR CV Status: Pulse Rate WNL, Blood Pressure Stable - GASTROINTESTINAL GI Status: No Symptoms - PAIN Pain Score: 0 - POST OP HYDRATION Hydration Status: Adequate & Stable
--- NOTE | 2019-02-07 21:54 | OR ---
SURGEON: Matias Rowley MD DATE OF PROCEDURE: 02/07/2019 PREOPERATIVE DIAGNOSIS: hemorrhage. POSTOPERATIVE DIAGNOSIS: hemorrhage. OPERATION PERFORMED: Examination under anesthesia, evacuation of copious blood clot from the intrauterine cavity, no products of conception, and gentle curetting of the endometrium. PRIMARY SURGEON: Matias Rowley MD. FOOD SERVICE ASSISTANT: OR jatin. ANESTHESIA: General endotracheal intubation, Mick Rdz. ESTIMATED BLOOD LOSS: Included with blood clot evacuated from the uterus is about 1300 to 1500 mL of blood. INDICATIONS: This patient is status post vaginal . She had vacuum extraction. The patient was induced for medical reason. She was on Pitocin for extended period of time. However, after the delivery, the patient has continued to bleed and is passing blood clot. I evaluated her and I tried to evacuate all the blood clot manually, but I was unable to do that, and after giving the patient Methergine and other methods to see if these stop bleeding, the patient continued to trickle bleeding, so a decision was made to do examination under anesthesia and evacuation of the blood clot. PROCEDURE IN DETAIL: The patient was brought to the OR, properly identified. After adequate level of anesthesia with the patient prepped and draped in sterile fashion as usual, straight catheter was used to empty the bladder, and I did an examination under anesthesia, and I evacuated a copious amount of blood clot from the intrauterine cavity, and then, a weighted speculum was placed in the vagina and a ring forceps was applied to the anterior lip of the cervix and using a #12 cannula, the endometrial cavity suction evacuated from all blood and blood clots. Next, I used a large curette gently curetting endometrial cavity. There was no products of conception, and once we gently curetted and evacuated all the blood clot from the intrauterine cavity, the uterus collapsed and bleeding stopped. The patient received 2 units of packed cells in the OR and she is to receive 1 unit of packed cells in the recovery room, and then, we will re-evaluate her by repeating her hematocrit at midnight and we will transfuse and manage accordingly. BRIA / KIKI /[id number]
[2019-02-08] MEDS ORDERED: Methylergonovine 0.2 MG/1 ML Amp IM ONE (00:52)
[2019-02-08] MEDS: Acetaminophen 500 MG Tab PO PRN (00:57)
[2019-02-08] MEDS: Lactated Ringers 1,000 ML IV SCH (01:15)
[2019-02-08] MEDS ORDERED: Tranexamic Acid 1,000 MG in Sodium Chloride 0.9% 100 ML IV ONE (02:20)
[2019-02-08] MEDS ORDERED: Sodium Chloride 0.9% 100 ML ONE (02:51)
[2019-02-08] MEDS ORDERED: Midazolam 1 MG/ML 2 ML SDV ONE (06:13)
[2019-02-08] MEDS ORDERED: Glycopyrrolate 0.2 MG/ML SDV ONE ×2 (06:13→06:40)
[2019-02-08] MEDS ORDERED: Propofol 200 MG/20 ML SDV ONE (06:13)
[2019-02-08] MEDS ORDERED: Neostigmine Methylsulfate 1 MG/ML 5 ML Syringe ONE (06:13)
[2019-02-08] MEDS ORDERED: fentaNYL 250 MCG/5 ML SDV ONE (06:13)
[2019-02-08] MEDS ORDERED: Rocuronium 100 MG/10 ML Syringe ONE (06:13)
[2019-02-08] MEDS ORDERED: Ondansetron 4 MG/2 ML SDV ONE (06:13)
[2019-02-08] MEDS ORDERED: Lidocaine 2% 5 ML SDV ONE (06:13)
[2019-02-08] MEDS ORDERED: Furosemide 40 MG/4 ML VIAL ONE (06:15)
[2019-02-08] MEDS ORDERED: ePHEDrine 50 MG/ML SDV ONE (06:48)
[2019-02-08] MEDS ORDERED: Ketorolac 30 MG/ML SDV IVPUSH ONE (07:33)
[2019-02-08] MEDS ORDERED: Ketorolac 30 MG/ML SDV IVPUSH PRN (07:33)
[2019-02-08] MEDS ORDERED: Ondansetron 4 MG/2 ML SDV IVPUSH PRN (07:33)
[2019-02-08] MEDS ORDERED: Promethazine 25 MG/ML SDV IM PRN (07:33)
[2019-02-08] MEDS ORDERED: Acetaminophen/oxyCODONE 325-5 MG Tab PO PRN (07:33)
[2019-02-08] MEDS ORDERED: Morphine 4 MG/ML Syringe IVPUSH PRN (07:33)
[2019-02-08] MEDS ORDERED: Atropine 0.1 MG/ML 10 ML Syringe IVPUSH PRN ×2 (07:46)
[2019-02-08] MEDS ORDERED: EPINEPHrine 1:10,000 1 MG/10 ML Syringe IVPUSH PRN (07:46)
[2019-02-08] MEDS ORDERED: 50% Dextrose in Water 50 ML Syringe IVPUSH PRN (07:46)
[2019-02-08] MEDS ORDERED: Albuterol 0.083% 2.5 MG/3 ML Neb Soln NEB PRN (07:46)
[2019-02-08] MEDS ORDERED: Naloxone 0.4 MG/ML Syringe IVPUSH PRN (07:46)
[2019-02-08] MEDS: fentaNYL 100 MCG/2 ML SDV IVPUSH PRN ×2 (07:52→08:03)
[2019-02-08] MEDS ORDERED: Morphine 2 MG/ML Syringe IVPUSH PRN (08:00)
--- NOTE | 2019-02-08 08:09 | PCM.SN ---
- Free Text/Narrative Note: Repeat CBC following second operative d and c and balloon placement shows platelet count treading down. Platelet 88,000 this am, I spoke with Dr Rowley and he is requesting two platelet packs in house in case emergent hysterectomy later today if balloon fails to control bleeding. Jason in lab was notified of this.
--- NOTE | 2019-02-08 08:13 | PCM.POSTAN ---
POST ANESTHESIA ASSESSMENT - MENTAL STATUS Mental Status: Alert, Oriented - VITAL SIGNS Pulse Rate: 110 SaO2: 96 Resp Rate: 16 Blood Pressure: 108/65 - RESPIRATORY Respiratory Status: Respiratory Rate WNL, Airway Patent, O2 Saturation Stable, Supplemental Oxygen - CARDIOVASCULAR CV Status: Pulse Rate WNL, Blood Pressure Stable - GASTROINTESTINAL GI Status: No Symptoms - PAIN Pain Score: 1 - POST OP HYDRATION Hydration Status: Adequate & Stable
[2019-02-08] MEDS ORDERED: Magnesium Sulfate/Water 2 GM in Premix Bag 1 BAG IV ONE (08:49)
[2019-02-08] MEDS: Acetaminophen/oxyCODONE 325-5 MG Tab PO PRN ×3 (09:43→22:02)
[2019-02-08] MEDS: Docusate Sodium 100 MG Cap PO PRN ×2 (09:44→20:56)
--- NOTE | 2019-02-08 10:10 | OR ---
SURGEON: Matias Rowley MD DATE OF PROCEDURE: 02/08/2019 PREOPERATIVE DIAGNOSIS: bleeding. POSTOPERATIVE DIAGNOSIS: bleeding. OPERATION PERFORMED: Examination under anesthesia, gentle D and C of the uterus and placing of a Bakri intrauterine balloon with vaginal pack. 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 ANESTHESIA: General endotracheal intubation, Jonathon Day and Mick Rdz ESTIMATED BLOOD LOSS: Included with blood clot evacuated from the intrauterine cavity is about 1000 mL. INDICATION FOR SURGERY: This patient is 33. She is status post vaginal . She had bleeding. She required that I take her to the OR yesterday to evacuate the blood clot and to do a gentle D and C and examination under anesthesia. However, the patient is continued to bleed and her hematocrit is dropped and she continued to have passing blood clot, so I decided to re-examine under anesthesia and put the possible placement of Bakri intrauterine balloon. PROCEDURE IN DETAIL: The patient was brought to the OR, properly identified. After adequate level of anesthesia, the patient was placed in lithotomy position, prepped and draped in sterile fashion as usual. [place] catheter was already inserted. I manually removed the large blood clot from the intrauterine cavity and after that I manually explored the uterus. There are no products of conception I could feel and so I gently massaged the uterus and went ahead and did a gentle dilatation and gentle curettage of the endometrial cavity with the large curette and the bleeding stopped. I explored the vagina and again there was no vaginal, labia or cervical laceration. There was no active bleeding from the cervix or the vagina. I went ahead and placed the Bakri balloon inside and inflated with 430 mL of normal saline to put intrauterine pressure and then I did vaginal packing on top of the balloon and the procedure was ended. I am planning to send the patient to the intensive care for observation and hopefully this will stop her bleeding. BRIA / KIKI /[id number] [place]
[2019-02-08] MEDS: Ampicillin 1 GM in Sodium Chloride 0.9% 50 ML IV SCH ×7 (10:43→12:56)
--- NOTE | 2019-02-08 17:37 | PCM.SN ---
- Free Text/Narrative Note: HgB and bleeding stabilizing at this time. Chelsie DIRECTOR INTERNAL COMMUNICATIONS ask to add platelet count to this PM H/H and to AM H/H count. 2 Platelet packs currently available in blood bank should they be needed. VSS throughout the day as well. Patient is doing much better this evening. Will re-evaluate in the AM.
[2019-02-09] MEDS: Acetaminophen/oxyCODONE 325-5 MG Tab PO PRN (04:18)
[2019-02-09 07:07] LABS: CHLORIDE,CL 110 mmol/L (98-107); SODIUM,NA 141 mmol/L (136-145)
--- NOTE | 2019-02-09 08:01 | PCM48HPAN ---
Post Anesthesia Note - EVALUATION WITHIN 48HRS OF ANESTHETIC Vital Signs in Normal Range: Yes Patient Participated in Evaluation: Yes Respiratory Function Stable: Yes Airway Patent: Yes Cardiovascular Function Stable: Yes Hydration Status Stable: Yes Pain Control Satisfactory: Yes Nausea and Vomiting Control Satisfactory: Yes Pulse Rate: 75 SaO2: 93 (0.5 LPM NC) Resp Rate: 18 Blood Pressure: 117/64 - COMMENTS/OBSERVATIONS Free Text/Narrative:: VSS throughout the night. Labs stabilizing this AM. Dr Rowley to assess intra uterine balloon this AM.
[2019-02-10 05:51] LABS: CHLORIDE,CL 107 mmol/L (98-107); SODIUM,NA 140 mmol/L (136-145)
--- NOTE | 2019-02-10 08:44 | PCM.DCSUM1 ---
Discharge Summary - Hospital Course Diagnosis: Stroke: No - Discharge Data Discharge Date: 02/10/19 Discharge Disposition: Home, Self-Care 01 Condition: Good - Patient Summary/Data Operative Procedure(s) Performed: EUA Evacuation of utrin blood clots. - Patient Instructions Diet: Usual Diet as Tolerated Activity: As Tolerated Driving: Do Not Drive - Discharge Plan Home Medications: Home Meds Folic Acid 1 mg PO DAILY 05/02/18 [History] Mv-Mn/Iron/FA/Herbal/Digestive [ One Tablet] 1 tab PO DAILY 05/02/18 [ History] lamoTRIgine [Lamictal] 150 mg PO BID 05/02/18 [History] Patient Handouts: Hemorrhage, Anemia, Care After Vaginal Delivery Referrals: [facility] [Outside] Matias Rowley MD [Physician] - 03/13/19 4:00 pm (6 week post ) - Discharge Summary/Plan Comment DC Time >30 min.: Yes - General Info Date of Service: 02/10/19 Functional Status: Reports: Pain Controlled - Review of Systems General: Reports: No Symptoms HEENT: Reports: No Symptoms Pulmonary: Reports: No Symptoms Cardiovascular: Reports: No Symptoms Gastrointestinal: Reports: No Symptoms Genitourinary: Reports: No Symptoms Musculoskeletal: Reports: No Symptoms Skin: Reports: No Symptoms Neurological: Reports: No Symptoms Psychiatric: Reports: No Symptoms - Patient Data Vitals - Most Recent: Last Vital Signs Temp 36.6 C 02/10/19 08:23 Pulse 85 02/10/19 08:23 Resp 18 02/10/19 08:23 BP 138/94 H 02/10/19 08:23 Pulse Ox 98 02/10/19 08:23 Weight - Most Recent: 78.789 kg I&O - Last 24 hours: Intake & Output 02/09/19 02/10/19 02/10/19 22:59 06:59 14:59 Intake Total 250 800 Output Total 1350 1600 Balance -1100 -800 Lab Results - Last 24 hrs: Laboratory Results - last 24 hr 02/06/19 02/10/19 02/10/19 Range/Units 00:50 05:04 05:04 WBC 10.74 (4.0-11.0) K/uL RBC 3.16 L (4.30-5.90) M/uL Hgb 9.5 L (12.0-16.0) g/dL Hct 28.2 L (36.0-46.0) % MCV 89.2 (80.0-98.0) fL MCH 30.1 (27.0-32.0) pg MCHC 33.7 (31.0-37.0) g/dL RDW Std Deviation 52.1 (28.0-62.0) fl RDW Coeff of Tosha 16 H (11.0-15.0) % Plt Count 145 L (150-400) K/uL MPV 10.70 (7.40-12.00) fL Nucleated RBC % 0.0 /100WBC Nucleated RBCs # 0 K/uL Sodium 140 (136-145) mmol/L Potassium 4.0 (3.5-5.1) mmol/L Chloride 107 (98-107) mmol/L Carbon Dioxide 26.9 (21.0-32.0) mmol/L BUN 8 (7.0-18.0) mg/dL Creatinine 0.9 (0.6-1.0) mg/dL Est Cr Clr Drug Dosing 78.21 mL/min Estimated GFR (MDRD) > 60.0 ml/min Glucose 78 (74-106) mg/dL Calcium 8.3 L (8.5-10.1) mg/dL Crossmatch See Detail Med Orders - Current: Current Medications Acetaminophen (Tylenol Extra Strength) 500 mg PO Q4H PRN PRN Reason: Pain Last Admin: 02/09/19 09:54 Dose: 500 mg Acetaminophen (Tylenol Extra Strength) 1,000 mg PO Q4H PRN PRN Reason: Pain Last Admin: 02/08/19 00:57 Dose: 1,000 mg Bisacodyl (Dulcolax) 10 mg RECTAL ONETIME PRN PRN Reason: Constipation Butorphanol Tartrate (Stadol) 1 mg IVPUSH Q1H PRN PRN Reason: Pain Last Admin: 02/06/19 21:27 Dose: 1 mg Carboprost Tromethamine (Hemabate Ds) 250 mcg IM ASDIRECTED PRN PRN Reason: Post Hemorrhage Docusate Sodium (Colace) 100 mg PO BID PRN PRN Reason: Constipation Last Admin: 02/08/19 20:56 Dose: 100 mg Emollient Ointment (Lansinoh Hpa) 0 gm TOP ASDIRECTED PRN PRN Reason: Sore Nipples Fentanyl (Sublimaze) 50 - 100 mcg IVPUSH Q5M PRN PRN Reason: Pain Last Admin: 02/08/19 08:03 Dose: 50 mcg Lactated Ringer's (Ringers, Lactated) 1,000 mls @ 150 mls/hr IV ASDIRECTED JOSHUA Last Admin: 02/08/19 01:15 Dose: 999 mls/hr Oxytocin/Sodium Chloride (Oxytocin 30 Unit/500 Ml-Ns) 30 unit in 500 mls @ 2 mls/hr IV TITRATE JOSHUA; Protocol Last Titration: 02/07/19 13:36 Dose: 12 munits/min, 12 mls/hr Oxytocin/Sodium Chloride (Oxytocin 30 Unit/500 Ml-Ns) 30 unit in 500 mls @ 555 mls/hr IV TITRATE JOSHUA Tranexamic Acid 1,000 mg/ (Sodium Chloride) 110 mls @ 660 mls/hr IV ONETIME PRN PRN Reason: Bleeding Last Admin: 02/07/19 18:33 Dose: 660 mls/hr Ibuprofen (Motrin) 400 mg PO Q4H PRN PRN Reason: Pain Ibuprofen (Motrin) 800 mg PO Q6H PRN PRN Reason: Pain Last Admin: 02/07/19 22:50 Dose: 800 mg Ketorolac Tromethamine (Toradol) 30 mg IVPUSH Q6H PRN PRN Reason: Pain (severe 7-10) Stop: 02/13/19 07:33 Lidocaine HCl (Xylocaine 1%) 50 ml INJECT ONETIME PRN PRN Reason: Laceration repair Methylergonovine Maleate (Methergine) 0.2 mg IM ASDIRECTED PRN PRN Reason: Post Hemorrhage Last Admin: 02/07/19 15:40 Dose: 0.2 mg Misoprostol (Cytotec) 25 mcg VAG ONETIME PRN PRN Reason: Cervical Ripening Last Admin: 02/06/19 01:32 Dose: 25 mcg Misoprostol (Cytotec) 25 mcg VAG Q4H PRN PRN Reason: Cervical Ripening Last Admin: 02/06/19 18:35 Dose: 25 mcg Misoprostol (Cytotec) 200 mcg PO ONETIME PRN PRN Reason: Post Hemorrhage Morphine Sulfate (Morphine) 4 mg IVPUSH Q2H PRN PRN Reason: Pain (severe 7-10) Nalbuphine HCl (Nubain) 10 mg IVPUSH Q1H PRN PRN Reason: Pain (severe 7-10) Ondansetron HCl (Zofran) 4 mg IV Q4H PRN PRN Reason: Nausea/Vomiting Last Admin: 02/07/19 09:16 Dose: 4 mg Ondansetron HCl (Zofran) 4 mg IVPUSH Q6H PRN PRN Reason: Nausea/Vomiting Oxycodone HCl (Oxycodone) 5 mg PO Q2H PRN PRN Reason: Pain Last Admin: 02/08/19 01:26 Dose: 5 mg Oxycodone/Acetaminophen (Percocet 325-5 Mg) 1 tab PO Q4H PRN PRN Reason: Pain (moderate 4-6) Last Admin: 02/09/19 04:18 Dose: 1 tab Oxycodone/Acetaminophen (Percocet 325-5 Mg) 2 tab PO Q4H PRN PRN Reason: Pain (moderate 4-6) Promethazine HCl (Phenergan) 25 mg IM Q6H PRN PRN Reason: Nausea/Vomiting Sodium Chloride (Saline Flush) 10 ml FLUSH ASDIRECTED PRN PRN Reason: Keep Vein Open Sodium Chloride (Saline Flush) 2.5 ml FLUSH ASDIRECTED PRN PRN Reason: Keep Vein Open Sodium Chloride (Normal Saline) 10 ml IV ASDIRECTED PRN PRN Reason: IV Use Sterile Water (Sterile Water For Irrigation) 1,000 ml IRR ASDIRECTED PRN PRN Reason: delivery Terbutaline Sulfate (Brethine) 0.25 mg SUBCUT ASDIRECTED PRN PRN Reason: Tacysystole Witch Margie (Tucks) 1 pad TOP ASDIRECTED PRN PRN Reason: comfort care Discontinued Medications Benzocaine/Menthol (Dermoplast Pain Relief 20%-0.5% Purvis) 78 gm TOP ASDIRECTED PRN PRN Reason: Perineal Comfort Measure Bupivacaine HCl (Sensorcaine-Mpf 0.25%) Confirm Administered Dose 10 ml .ROUTE .STK-MED ONE Stop: 02/06/19 22:46 Ephedrine Sulfate (Ephedrine Sulfate) Confirm Administered Dose 50 mg .ROUTE .STK-MED ONE Stop: 02/08/19 06:49 Fentanyl (Sublimaze) Confirm Administered Dose 250 mcg .ROUTE .[facility]-MED ONE Stop: 02/07/19 19:31 Fentanyl (Sublimaze) Confirm Administered Dose 250 mcg .ROUTE .[facility]-MED ONE Stop: 02/08/19 06:14 Furosemide (Lasix) Confirm Administered Dose 40 mg .ROUTE .[facility]-MED ONE Stop: 02/07/19 20:25 Furosemide (Lasix) Confirm Administered Dose 40 mg .ROUTE .[facility]-MED ONE Stop: 02/08/19 06:16 Glycopyrrolate (Robinul) Confirm Administered Dose 0.2 mg .ROUTE .[facility]-MED ONE Stop: 02/07/19 20:31 Glycopyrrolate (Robinul) Confirm Administered Dose 0.4 mg .ROUTE .[facility]-MED ONE Stop: 02/08/19 06:14 Glycopyrrolate (Robinul) Confirm Administered Dose 0.4 mg .ROUTE .[facility]-MED ONE Stop: 02/08/19 06:41 Ampicillin Sodium 2 gm/ Sodium (Chloride) 100 mls @ 200 mls/hr IV ONETIME ONE Stop: 02/06/19 00:59 Last Admin: 02/06/19 01:19 Dose: 200 mls/hr Ampicillin Sodium 1 gm/ Sodium (Chloride) 50 mls @ 100 mls/hr IV Q4H [facility] Last Admin: 02/07/19 01:23 Dose: 100 mls/hr Ampicillin Sodium 1 gm/ Sodium (Chloride) 50 mls @ 100 mls/hr IV Q4H [facility] Last Admin: 02/08/19 12:56 Dose: 100 mls/hr Ropivacaine (Naropin 0.2%) Confirm Administered Dose 100 mls @ as directed .ROUTE .[facility]-MED ONE Stop: 02/06/19 22:46 Fentanyl/Bupivacaine HCl (Xfaxivdi-Gaelx-Mw 2 Mcg/Ml-0.125%) Confirm Administered Dose 100 mls @ as directed .ROUTE .[facility]-MED ONE Stop: 02/07/19 08:28 Last Admin: 02/08/19 10:43 Dose: Not Given Ropivacaine (Naropin 0.2%) Confirm Administered Dose 100 mls @ as directed .ROUTE .[facility]-MED ONE Stop: 02/07/19 08:28 Last Admin: 02/08/19 10:43 Dose: Not Given Fentanyl/Bupivacaine HCl (Dhdnxnvx-Zastp-Nb 2 Mcg/Ml-0.125%) Confirm Administered Dose 100 mls @ as directed .ROUTE .STK-MED ONE Stop: 02/07/19 13:00 Last Admin: 02/08/19 10:43 Dose: Not Given Sodium Chloride (Normal Saline) Confirm Administered Dose 100 mls @ as directed .ROUTE .STK-MED ONE Stop: 02/08/19 02:52 Last Admin: 02/08/19 10:47 Dose: Not Given Tranexamic Acid 1,000 mg/ (Sodium Chloride) 110 mls @ 660 mls/hr IV ONETIME ONE Stop: 02/08/19 02:29 Last Admin: 02/08/19 10:46 Dose: Not Given Magnesium Sulfate 2 gm/ Premix 50 mls @ 50 mls/hr IV ONETIME ONE Stop: 02/08/19 09:48 Last Admin: 02/08/19 09:44 Dose: 50 mls/hr Ketorolac Tromethamine (Toradol) 30 mg IVPUSH ONETIME ONE Stop: 02/08/19 07:34 Last Admin: 02/08/19 10:47 Dose: Not Given Lidocaine (Xylocaine-Mpf 2%) Confirm Administered Dose 5 ml .ROUTE .STK-MED ONE Stop: 02/07/19 19:31 Lidocaine (Xylocaine-Mpf 2%) Confirm Administered Dose 5 ml .ROUTE .STK-MED ONE Stop: 02/08/19 06:14 Lidocaine/Epinephrine (Lidocaine 1.5%-Epi 1:200,000) Confirm Administered Dose 5 ml IJ .STK-MED ONE Stop: 02/06/19 22:46 Methylergonovine Maleate (Methergine) Confirm Administered Dose 0.2 mg .ROUTE .STK-MED ONE Stop: 02/07/19 20:17 Methylergonovine Maleate (Methergine) 0.2 mg IM ONETIME ONE Stop: 02/08/19 00:53 Last Admin: 02/08/19 01:18 Dose: 0.2 mg Midazolam HCl (Versed 1 Mg/Ml) Confirm Administered Dose 2 mg .ROUTE .STK-MED ONE Stop: 02/07/19 19:31 Midazolam HCl (Versed 1 Mg/Ml) Confirm Administered Dose 2 mg .ROUTE .STK-MED ONE Stop: 02/08/19 06:14 Misoprostol (Cytotec) 25 mcg PO ONETIME ONE Stop: 02/06/19 13:46 Last Admin: 02/06/19 13:46 Dose: 25 mcg Misoprostol (Cytotec) 25 mcg PO ONETIME ONE Stop: 02/06/19 18:20 Last Admin: 02/06/19 18:35 Dose: 25 mcg Morphine Sulfate (Morphine) 6 mg IVPUSH ONETIME ONE Stop: 02/07/19 19:01 Last Admin: 02/08/19 10:44 Dose: Not Given Morphine Sulfate (Morphine) 4 mg IVPUSH Q2H PRN PRN Reason: Pain (severe 7-10) Neostigmine Methylsulfate (Neostigmine) Confirm Administered Dose 5 mg .ROUTE .STK-MED ONE Stop: 02/08/19 06:14 Ondansetron HCl (Zofran) Confirm Administered Dose 4 mg .ROUTE .STK-MED ONE Stop: 02/07/19 19:31 Ondansetron HCl (Zofran) Confirm Administered Dose 4 mg .ROUTE .STK-MED ONE Stop: 02/08/19 06:14 Propofol (Diprivan 20 Ml) Confirm Administered Dose 200 mg .ROUTE .STK-MED ONE Stop: 02/07/19 19:31 Propofol (Diprivan 20 Ml) Confirm Administered Dose 200 mg .ROUTE .STK-MED ONE Stop: 02/08/19 06:14 Rocuronium [place] (Zemuron) Confirm Administered Dose 100 mg .ROUTE .STK-MED ONE Stop: 02/07/19 19:31 Rocuronium [place] (Zemuron) Confirm Administered Dose 100 mg .ROUTE .STK-MED ONE Stop: 02/08/19 06:14 Succinylcholine Chloride (Succinylcholine Chloride) Confirm Administered Dose 200 mg .ROUTE .STK-MED ONE Stop: 02/07/19 19:31 Tranexamic Acid (Cyklokapron) Confirm Administered Dose 1,000 mg .ROUTE .STK- MED ONE Stop: 02/08/19 02:50 Last Admin: 02/08/19 10:46 Dose: Not Given - Exam General: Reports: Alert, Oriented HEENT: Reports: Pupils Equal, Pupils Reactive, EOMI, Mucous Membr. Moist/[place] Neck: Reports: Supple Lungs: Reports: Clear to Auscultation, Normal Respiratory Effort Cardiovascular: Reports: Regular Rate, Regular Rhythm GI/Abdominal Exam: Normal Bowel Sounds, Soft, Non-Tender, No Organomegaly, No Distention, No Abnormal Bruit, No Mass, Pelvis Stable (Female) Exam: Normal External Exam, Normal Speculum Exam, Normal Bimanual Exam Rectal (Female) Exam: Normal Exam, Normal Rectal Tone Back Exam: Reports: Normal Inspection, Full Range of Motion Extremities: Normal Inspection, Normal Range of Motion, Non-Tender, No Pedal Edema, Normal Capillary Refill Skin: Reports: Warm, Dry, Intact Wound/Incisions: Reports: Healing Well Neurological: Reports: No New Focal Deficit Psy/Mental Status: Reports: Alert, Normal Affect, Normal Mood
== END 2019-02-10 09:00 | disposition home or self-care (01) | DRG 542 ==
LOC: MW.OBCHECK 00:23 → MW.OB 00:25 → OBSVTOIN 02-07 13:56 → MW.OB 02-07 20:49 → MW.ICU 02-08 09:24
PROVIDERS: ADMIT Obstetrics & Gynecology; ATTEND Obstetrics & Gynecology
PROC: 10D07Z6 Extraction of Products of Conception, Vacuum, Via Natural or Artificial Opening (ICD-10-PCS; principal; 2019-02-07)
PROC: 0UC97ZZ Extirpation of Matter from Uterus, Via Natural or Artificial Opening (ICD-10-PCS; 2019-02-07)
PROC: 0W3R7ZZ Control Bleeding in Genitourinary Tract, Via Natural or Artificial Opening (ICD-10-PCS; 2019-02-07)
PROC: 10D07Z8 Extraction of Products of Conception, Other, Via Natural or Artificial Opening (ICD-10-PCS; 2019-02-07)
PROC: 3E033VJ Introduction of Other Hormone into Peripheral Vein, Percutaneous Approach (ICD-10-PCS; 2019-02-07)
PROC: 10907ZC Drainage of Amniotic Fluid, Therapeutic from Products of Conception, Via Natural or Artificial Opening (ICD-10-PCS; 2019-02-07)
PROC: 3E0P7VZ Introduction of Hormone into Female Reproductive, Via Natural or Artificial Opening (ICD-10-PCS; 2019-02-07)
PROC: 30233N1 Transfusion of Nonautologous Red Blood Cells into Peripheral Vein, Percutaneous Approach (ICD-10-PCS; 2019-02-08)
DX: O69.81X0 Labor and delivery complicated by cord around neck, without compression, not applicable or unspecified (principal); Z3A.39 39 weeks gestation of pregnancy; Z37.0 Single live birth; O72.1 Other immediate postpartum hemorrhage
CPT/HCPCS: 36415; 36430; 51701; 59025; 59409; 59899; 80048; 80053; 83735; 85014; 85018; 85025; 85027; 85049; 85384; 85610; 85730; 86850; 86900; 86901; 86920; 86921; 86922; 88305; A4217; A9270-GY; J0290; J0330; J0595; J1940; J2001; J2210; J2250; J2405; J2590; J2704; J3010; J3475; J3490; J7030; J7050; J7120; P9016

== ENCOUNTER 2023-09-05 11:45 | Emergency (ER) | payer BC ==
[2023-09-05] MEDS ORDERED: lamoTRIgine 100 MG Tab PO ONE (12:12)
== END 2023-09-05 12:51 | disposition left against medical advice (07) ==
LOC: MW.ED 11:45
DX: Z76.0 Encounter for issue of repeat prescription (principal); G40.909 Epilepsy, unspecified, not intractable, without status epilepticus; Z79.899 Other long term (current) drug therapy
CPT/HCPCS: 99281

== ENCOUNTER 2023-10-21 06:39 | Day surgery (SDC) | payer BC ==
[~2023-10-21 06:39] MED LIST: Sodium Chloride 0.9% 10 ML Syringe FLUSH PRN; Sodium Chloride 0.9% 2.5 ML Syringe FLUSH PRN; Sodium Chloride 0.9% 20 ML SDV IV PRN
[2023-10-21] MEDS: Lactated Ringers 1,000 ML IV SCH (07:10)
[2023-10-21] MEDS ORDERED: propofoL 50 ML ONE (07:37)
== END 2023-10-21 09:04 | disposition home or self-care (01) ==
LOC: MW.SDS 06:39
PROVIDERS: ATTEND Surgery
DX: K58.9 Irritable bowel syndrome, unspecified (principal); K64.4 Residual hemorrhoidal skin tags; F41.9 Anxiety disorder, unspecified; G40.309 Generalized idiopathic epilepsy and epileptic syndromes, not intractable, without status epilepticus; F32.A Depression, unspecified; Z79.899 Other long term (current) drug therapy
CPT/HCPCS: 45380; 81025; J2704; J7120; 00811

== ENCOUNTER 2025-03-11 14:31 | Emergency (ER) | payer BC ==
[2025-03-11] MEDS: Sodium Chloride 0.9% 1,000 ML IV ONE (15:41)
[2025-03-11] MEDS: Iopamidol 755 MG/ML 500 ML Multipack Bottle IVPUSH STA (16:15)
[2025-03-11] MEDS: Amoxicillin/Clavulanate K 875-125 MG Tab PO ONE (17:17)
[2025-03-11 17:26] LABS: APPEARANCE,URINE CLEAR; BILIRUBIN,URINE NEGATIVE (NEGATIVE); COLOR,URINE YELLOW; GLUCOSE,URINE NEGATIVE (NEGATIVE); KETONES,URINE NEGATIVE (NEGATIVE); LEUKOCYTE ESTERASE,URINE NEGATIVE (NEGATIVE); NITRITE,URINE NEGATIVE (NEGATIVE); OCCULT BLOOD,URINE NEGATIVE (NEGATIVE); PH,URINE 6.5 (5.0-8.0); PROTEIN,URINE NEGATIVE (NEGATIVE); UROBILINOGEN,URINE 0.2 EU/dL (<2.0)
== END 2025-03-11 17:38 | disposition home or self-care (01) ==
LOC: MW.ED 14:31
DX: J32.9 Chronic sinusitis, unspecified (principal); Z79.899 Other long term (current) drug therapy; Z75.3 Unavailability and inaccessibility of health-care facilities
CPT/HCPCS: 70450; 70496; 70498; 81003; 81025; 96361; 96374; 99284; A9270; J1100; J7030; Q9967

== ENCOUNTER 2025-04-21 10:45 | Emergency (ER) | payer BC ==
[2025-04-21] MEDS: Orphenadrine 60 MG/2 ML Inj IV ONE (11:44)
[2025-04-21 11:46] LABS: BASOPHILS ABSOLUTE AUTO 0.03 K/uL (0.00-0.20); BASOPHILS PERCENT AUTO 0.5 % (0.0-1.0); EOSINOPHILS ABSOLUTE AUTO 0.01 K/uL (0.00-0.45); EOSINOPHILS PERCENT AUTO 0.2 % (0.0-6.0); IMMATURE GRAN ABSOLUTE AUTO 0.02 K/uL (0.00-0.05); IMMATURE GRAN PERCENT AUTO 0.4 % (0.0-0.4); LYMPHOCYTES ABSOLUTE AUTO 0.66 K/uL (1.00-4.80); LYMPHOCYTES PERCENT AUTO 11.8 % (24.0-44.0); MEAN PLATELET VOLUME 10.2 fL (9.4-12.3); MONOCYTES ABSOLUTE AUTO 0.28 K/uL (0.00-0.80); MONOCYTES PERCENT AUTO 5.0 % (0.0-8.0); NEUTROPHILS ABSOLUTE AUTO 4.57 K/uL (1.80-7.70); NEUTROPHILS PERCENT AUTO 82.1 % (41.0-71.0); NRBC ABSOLUTE 0.00 K/uL (0.00-0.02); NRBC PERCENT 0.0 /100WBC (0.0-0.2); PLATELET COUNT,PLT 255 K/uL (150-400); RED BLOOD CELL COUNT 4.04 M/uL (4.10-5.30); WHITE BLOOD CELL COUNT,WBC 5.57 K/uL (3.9-11.3)
[2025-04-21 12:08] LABS: A/G RATIO 1.1 (0.9-1.6); ALANINE AMINOTRANSFERASE,ALT 20 IU/L (14-63); ASPARTATE AMNIOTRANSFERASE,AST 14 IU/L (15-37); BILIRUBIN TOTAL 0.4 mg/dL (0.2-1.0); BLOOD UREA NITROGEN,BUN 16 mg/dL (7.0-18.0); CARBON DIOXIDE,CO2 25.7 mmol/L (21.0-32.0); CHLORIDE,CL 105 mmol/L (98-107); CREATININE 1.0 mg/dL (0.6-1.0); GLUCOSE RANDOM 98 mg/dL (74-106); POTASSIUM,K 4.4 mmol/L (3.5-5.1); PROTEIN TOTAL,TP 7.3 g/dL (6.4-8.2); SODIUM,NA 139 mmol/L (136-145)
[2025-04-21 12:10] LABS: ESTIMATED GFR 74 mL/min (>60)
[2025-04-24 13:07] LABS: LAMOTROGINE 3.1 ug/mL (3.0-15.0)
== END 2025-04-21 13:50 | disposition home or self-care (01) ==
LOC: MW.ED 10:45
DX: G40.909 Epilepsy, unspecified, not intractable, without status epilepticus (principal); M62.838 Other muscle spasm; Z79.899 Other long term (current) drug therapy; Z75.3 Unavailability and inaccessibility of health-care facilities
CPT/HCPCS: 36415; 80053; 80175; 83690; 83735; 84702; 85025; 96361; 96374; 99284; A9270; J2360; J7030